=== PATIENT | male | born 1985 | race Caucasian/White ===

== ENCOUNTER 2016-08-02 04:08 | Emergency (ER) | payer SELFPAY ==
--- NOTE | 2016-08-02 04:15 | NUR ---
PT ON PHONE WHEN CALLED FOR TRIAGE.
--- NOTE | 2016-08-02 04:25 | NUR ---
INFORMED PT LEFT WITH GIRLFRIEND
== END 2016-08-02 04:36 | disposition left against medical advice (07) ==
LOC: ER 04:08
DX: Z53.21 Procedure and treatment not carried out due to patient leaving prior to being seen by health care provider (principal)